=== PATIENT | female | born 2005 | race Hispanic/Latino ===

== ENCOUNTER 2023-12-08 07:21 | Inpatient (IN) | payer BC ==
[2023-12-02 11:51] LABS: APPEARANCE,URINE CLEAR (CLEAR); BILIRUBIN,URINE NEGATIVE (NEGATIVE); COLOR,URINE YELLOW (YELLOW); GLUCOSE, URINE (UA) NEGATIVE (NEGATIVE); KETONES,URINE NEGATIVE (NEGATIVE); LEUKOCYTE ESTERASE ,URINE 75 Leu/uL (NEGATIVE); NITRATE,URINE NEGATIVE (NEGATIVE); OCCULT BLOOD,URINE SMALL (NEGATIVE); PH,URINE 5.5 (5.0-8.0); PROTEIN,URINE NEGATIVE (NEGATIVE); UROBILINOGEN,URINE 0.2 mg/dL (0.2-1.0)
[2023-12-02 11:52] LABS: BASOPHILS # (AUTO) 0.02 K/uL (0.00-0.20); BASOPHILS % (AUTO) 0.3 % (0.0-5.0); EOSINOPHILS # (AUTO) 0.03 K/uL (0.00-0.70); EOSINOPHILS % (AUTO) 0.5 % (0.0-8.0); HEMATOCRIT 42.2 % (36-48); IMMATURE GRANULOCYTE ABSOLUTE 0.02 K/uL (0-1); LYMPHOCYTES # (AUTO) 1.3 K/uL (1.0-4.8); LYMPHOCYTES % (AUTO) 21.7 % (21.0-51.0); MEAN CORPUSCULAR HEMOGLOBIN 29.3 pg (27.0-33.0); MEAN CORPUSCULAR HGB CONC 33.2 g/dL (32.0-36.0); MEAN CORPUSCULAR VOLUME 88.3 fL (80-100); MONOCYTES # (AUTO) 0.3 K/uL (0.1-1.0); MONOCYTES % (AUTO) 5.5 % (3.0-13.0); NEUTROPHILS # (AUTO) 4.4 K/uL (1.8-7.7); NEUTROPHILS % (AUTO) 71.7 % (40.0-77.0); PLATELET COUNT (AUTO) 208 K/uL (130-400); RED BLOOD CELL COUNT(AUTO) 4.78 MIL/uL (4.00-5.50); RED CELL DISTRIBUTION WIDTH 11.9 % (11.0-15.5); WHITE BLOOD COUNT (AUTO) 6.2 K/uL (4.8-10.8)
[2023-12-02 11:53] VITALS: BP 112/63; PULSE 65; RESP 18
[2023-12-02 11:58] LABS: ADD UA MICROSCOPIC YES
[2023-12-02 12:00] LABS: BACTERIA,URINE RARE /HPF (None Seen); MUCUS,URINE FEW LPF (None Seen); SQUAMOUS EPITHELIAL CELL,UR MOD /HPF (0-2)
[2023-12-02 12:08] LABS: ALBUMIN 4.5 g/dL (3.5-5.0); BILIRUBIN,TOTAL 0.5 mg/dL (0.2-1.0); CREATININE 0.6 mg/dL (0.5-1.0); POTASSIUM 4.3 mmol/L (3.5-5.1); TOTAL PROTEIN, SERUM 8.9 g/dL (6.0-8.3)
[~2023-12-08] VITALS: Ht 157.5 cm; Wt 59.1 kg
[2023-12-08] VITALS (34 sets, daily range): BP systolic 82–130; BP diastolic 36–84; PULSE 70–116; RESP 10–23; O2SAT 98–100
[~2023-12-08 07:21] MED LIST: ASCO1TAB43 PO; CALCIUM + VITAMIN D PO; CHOL500050 PO; COLLAGEN PO; DEPO-PROVERA IM; EVENING PRIMROSE OIL PO; MULTIVITAMIN GUMMIES PO; VITAMIN E PO
[2023-12-08] MEDS ORDERED: SUCCINYLCHOLINE CHLORIDE 20 MG/ML 10 ML VIAL ONE (07:57)
[2023-12-08] MEDS ORDERED: LIDOCAINE PF 100MG/5ML (2%) SYRINGE 5ML ONE (07:57)
[2023-12-08] MEDS ORDERED: PROPOFOL 10 MG/ML 20ML VIAL IV ONE (07:58)
[2023-12-08] MEDS ORDERED: MIDAZOLAM HCL 1 MG/ML 2ML VIAL ONE ×2 (07:58→09:58)
[2023-12-08] MEDS ORDERED: GLYCOPYRROLATE 0.2 MG/ML 5 ML VIAL ONE (07:58)
[2023-12-08] MEDS ORDERED: NEOSTIGMINE METHYLSULFATE 1MG/ML IV ONE (07:58)
[2023-12-08] MEDS ORDERED: ONDANSETRON 4MG INJ ONE (07:58)
[2023-12-08] MEDS ORDERED: DEXAMETHASONE SOD PHOSPHATE 10MG/ML 1ML VIAL ONE ×2 (07:58→09:39)
[2023-12-08] MEDS ORDERED: ROCURONIUM BROMIDE 10MG/1ML 5ML VL ONE (07:59)
[2023-12-08] MEDS ORDERED: FENTANYL CITRATE PF 50 MCG/1 ML 2ML VIAL ONE (07:59)
[2023-12-08] MEDS ORDERED: BUPIVACAINE/PF 0.5% 30ML VIAL ONE (08:01)
[2023-12-08] MEDS: CEFAZOLIN SODIUM 2 GM VIAL IVPB ONE (09:35)
[2023-12-08 09:52] LABS: ABG BASE EXCESS -6.8 mmol/L (-2.0-3.0); ABG HCO3 18.8 mmol/L (21.0-28.0); ABG OXYGEN SATURATION 99.6 % (95.0-99.0); ABG PCO2 38 mmHg (32-45); ABG PH 7.312 (7.350-7.450); CARBON MONOXIDE 0.3; DEVICE COMMENT OR 7 RR; HHb 0.4; PO2, ARTERIAL BG > 500.0 mmHg (83.0-108.0); VENT MODE, BG OR VENT (ROOM AIR)
[2023-12-08] MEDS ORDERED: FAMOTIDINE 20MG VIAL IV ONE (10:10)
[2023-12-08] MEDS ORDERED: EPHEDRINE SULFATE 50 MG/ML AMPULE ONE (10:20)
[2023-12-08 10:48] LABS: ABG BASE EXCESS 1.2 mmol/L (-2.0-3.0); ABG HCO3 23.6 mmol/L (21.0-28.0); ABG OXYGEN SATURATION 99.1 % (95.0-99.0); ABG PCO2 31 mmHg (32-45); ABG PH 7.497 (7.350-7.450); CARBON MONOXIDE 0.1; DEVICE COMMENT ALINE; HHb 0.9; PO2, ARTERIAL BG 290.2 mmHg (83.0-108.0); VENT MODE, BG AC (ROOM AIR)
[2023-12-08] MEDS ORDERED: POLYETHYLENE GLYCOL 3350 17 GM POWD.PACK PO PRN (11:00)
[2023-12-08] MEDS ORDERED: ZOLPIDEM TARTRATE 5 MG TAB PO PRN (11:00)
[2023-12-08] MEDS ORDERED: DIPHENHYDRAMINE HCL 25 MG CAPSULE PO PRN (11:00)
[2023-12-08] MEDS ORDERED: ACETAMINOPHEN 325 MG TAB PO PRN ×2 (11:00)
[2023-12-08] MEDS ORDERED: HYDRALAZINE 25MG TABLET PO PRN (11:00)
[2023-12-08] MEDS ORDERED: GUAIFENESIN SUGAR-FREE 100 MG/5 ML UDCUP PO PRN (11:00)
[2023-12-08] MEDS ORDERED: ONDANSETRON 4MG INJ IV PRN (11:00)
[2023-12-08] MEDS ORDERED: POTASSIUM CHLORIDE 10% ELIXIR 20 MEQ/15 ML UDCUP PO PRN (11:30)
[2023-12-08] MEDS ORDERED: POTASSIUM CHLORIDE 20MEQ/100ML 100 ML IV PRN (11:30)
[2023-12-08] MEDS ORDERED: KCL 20 MEQ ERTAB PO PRN (11:30)
[2023-12-08] MEDS: FENTANYL 1000MCG+NS 100ML 100 ML IV SCH (11:39)
[2023-12-08] MEDS: PROPOFOL 1000 MG/100 ML IV PRN (11:40)
[2023-12-08] MEDS: FENTANYL 1000MCG+NS 100ML 100 ML IV ONE (11:40)
[2023-12-08] MEDS: PROPOFOL 1000 MG/100 ML 100 ML IV ONE (11:41)
[2023-12-08] MEDS: LACTATED RINGERS 1000ML 1,000 ML IV SCH (11:42)
[2023-12-08] MEDS: DiphenhydrAMINE HCL 50 MG/ML VIAL IV SCH (11:42)
[2023-12-08 11:49] LABS: BASOPHILS # (AUTO) 0.03 K/uL (0.00-0.20); BASOPHILS % (AUTO) 0.2 % (0.0-5.0); EOSINOPHILS # (AUTO) 0.01 K/uL (0.00-0.70); EOSINOPHILS % (AUTO) 0.1 % (0.0-8.0); HEMATOCRIT 41.8 % (36-48); IMMATURE GRANULOCYTE ABSOLUTE 0.13 K/uL (0-1); LYMPHOCYTES # (AUTO) 1.2 K/uL (1.0-4.8); LYMPHOCYTES % (AUTO) 6.6 % (21.0-51.0); MEAN CORPUSCULAR HEMOGLOBIN 29.3 pg (27.0-33.0); MEAN CORPUSCULAR HGB CONC 33.7 g/dL (32.0-36.0); MEAN CORPUSCULAR VOLUME 86.7 fL (80-100); MONOCYTES # (AUTO) 0.2 K/uL (0.1-1.0); NEUTROPHILS # (AUTO) 16.5 K/uL (1.8-7.7); NEUTROPHILS % (AUTO) 91.4 % (40.0-77.0); PLATELET COUNT (AUTO) 197 K/uL (130-400); RED BLOOD CELL COUNT(AUTO) 4.82 MIL/uL (4.00-5.50)
[2023-12-08] MEDS: CEFAZOLIN SODIUM 2 GM VIAL ONE (11:49)
[2023-12-08] MEDS: INSULIN HUMULIN R 100 UNIT/ML 3ML SQ SCH ×2 (11:49→21:00)
[2023-12-08] MEDS: LACTATED RINGERS 1000ML 1,000 ML IV ONE (11:50)
[2023-12-08 12:01] LABS: ALBUMIN 2.8 g/dL (3.5-5.0); BILIRUBIN,TOTAL 0.7 mg/dL (0.2-1.0); CREATININE 0.6 mg/dL (0.5-1.0); MAGNESIUM 1.4 mg/dL (1.80-2.40); TOTAL PROTEIN, SERUM 5.3 g/dL (6.0-8.3)
[2023-12-08 12:05] LABS: POTASSIUM 2.8 mmol/L (3.5-5.1)
[2023-12-08] MEDS: POTASSIUM CHLORIDE 20MEQ/100ML 100 ML IV PRN (12:06)
[2023-12-08] MEDS: MAGNESIUM 2GM PREMIX 50ML 50 ML IV PRN (12:33)
[2023-12-08 14:38] LABS: ABG BASE EXCESS -1.8 mmol/L (-2.0-3.0); ABG HCO3 21.9 mmol/L (21.0-28.0); ABG OXYGEN SATURATION 99.4 % (95.0-99.0); ABG PCO2 34 mmHg (32-45); ABG PH 7.423 (7.350-7.450); PO2, ARTERIAL BG 201.2 mmHg (83.0-108.0); VENT MODE, BG AC (ROOM AIR)
[2023-12-08] MEDS: ALBUTEROL 0.083% 2.5 MG/3 ML INH IH SCH (14:54)
[2023-12-08] MEDS: IPRATROPIUM 0.5 MG/2.5 ML INH IH SCH (14:55)
[2023-12-08 17:23] LABS: POTASSIUM 3.8 mmol/L (3.5-5.1)
[2023-12-08] MEDS: SOLU-MEDROL 40MG VIAL IVP SCH (21:31)
[2023-12-08] MEDS: FAMOTIDINE 20MG VIAL IV SCH (21:32)
[2023-12-09] VITALS (8 sets, daily range): BP systolic 105–151; BP diastolic 55–78; PULSE 71–101; RESP 16–19; O2SAT 96
[2023-12-09 04:42] LABS: CREATININE 0.4 mg/dL (0.5-1.0); MAGNESIUM 1.2 mg/dL (1.80-2.40); POTASSIUM 3.8 mmol/L (3.5-5.1)
[2023-12-09 04:49] LABS: HEMATOCRIT 26.7 % (36-48); IMMATURE GRANULOCYTE ABSOLUTE 0.03 K/uL (0-1); LYMPHOCYTES # (AUTO) 0.4 K/uL (1.0-4.8); LYMPHOCYTES % (AUTO) 6.6 % (21.0-51.0); MEAN CORPUSCULAR HEMOGLOBIN 29.3 pg (27.0-33.0); MEAN CORPUSCULAR HGB CONC 33.7 g/dL (32.0-36.0); MONOCYTES # (AUTO) 0.1 K/uL (0.1-1.0); MONOCYTES % (AUTO) 1.5 % (3.0-13.0); NEUTROPHILS # (AUTO) 6.1 K/uL (1.8-7.7); NEUTROPHILS % (AUTO) 91.5 % (40.0-77.0); PLATELET COUNT (AUTO) 132 K/uL (130-400); RED BLOOD CELL COUNT(AUTO) 3.07 MIL/uL (4.00-5.50); RED CELL DISTRIBUTION WIDTH 12.3 % (11.0-15.5); WHITE BLOOD COUNT (AUTO) 6.7 K/uL (4.8-10.8)
[2023-12-09] MEDS ORDERED: ALBUTEROL 0.083% 2.5 MG/3 ML INH IH PRN (09:30)
[2023-12-09] MEDS ORDERED: IPRATROPIUM 0.5 MG/2.5 ML INH IH PRN (09:30)
== END 2023-12-09 18:30 | disposition home or self-care (01) | DRG 606 ==
LOC: DAH 07:21 → 2CV 07:22 → DAH 07:22 → 4DH 12-09 00:30
PROVIDERS: ADMIT Student in an Organized Health Care Education/Training Program; ATTEND Student in an Organized Health Care Education/Training Program
PROC: 0BH17EZ Insertion of Endotracheal Airway into Trachea, Via Natural or Artificial Opening (ICD-10-PCS; 2023-12-08)
PROC: 5A1935Z Respiratory Ventilation, Less than 24 Consecutive Hours (ICD-10-PCS; 2023-12-08)
PROC: 0HJT0ZZ Inspection of Right Breast, Open Approach (ICD-10-PCS; principal; 2023-12-08 09:30)
DX: D24.1 Benign neoplasm of right breast (principal); J96.00 Acute respiratory failure, unspecified whether with hypoxia or hypercapnia; T88.6XXA Anaphylactic reaction due to adverse effect of correct drug or medicament properly administered, initial encounter; Y83.8 Other surgical procedures as the cause of abnormal reaction of the patient, or of later complication, without mention of misadventure at the time of the procedure; Z53.9 Procedure and treatment not carried out, unspecified reason; T36.0X5A Adverse effect of penicillins, initial encounter; Y92.89 Other specified places as the place of occurrence of the external cause; Z88.8 Allergy status to other drugs, medicaments and biological substances
CPT/HCPCS: 36415; 36600; 71045; 80048; 80053; 81001; 81025; 82435; 82803; 82947; 82948; 83605; 83735; 84132; 84295; 84443; 84703; 85018; 85025; 87040; 87071; 87088; 87205; 94002; 94640; 94664; G0378; J0330; J1100; J1200; J2001; J2250; J2405; J2704; J2710; J2920; J3010; J3475; J3480; J3490; J7120; A4213; A4215; A4221; A4222; A4223; A4600; A4649; A4663; A4930; G0168; J0665; J0690

== ENCOUNTER 2023-12-31 09:57 | Day surgery (SDC) | payer BC ==
[2023-12-29 11:53] VITALS: BP 97/59; PULSE 78; RESP 18
[2023-12-29 12:01] LABS: BASOPHILS # (AUTO) 0.01 K/uL (0.00-0.20); BASOPHILS % (AUTO) 0.2 % (0.0-5.0); EOSINOPHILS # (AUTO) 0.04 K/uL (0.00-0.70); EOSINOPHILS % (AUTO) 0.9 % (0.0-8.0); HEMATOCRIT 38.3 % (36-48); IMMATURE GRANULOCYTE ABSOLUTE 0.01 K/uL (0-1); LYMPHOCYTES # (AUTO) 1.6 K/uL (1.0-4.8); LYMPHOCYTES % (AUTO) 35.8 % (21.0-51.0); MEAN CORPUSCULAR HEMOGLOBIN 29.3 pg (27.0-33.0); MEAN CORPUSCULAR HGB CONC 32.9 g/dL (32.0-36.0); MEAN CORPUSCULAR VOLUME 89.1 fL (80-100); MONOCYTES # (AUTO) 0.2 K/uL (0.1-1.0); MONOCYTES % (AUTO) 5.3 % (3.0-13.0); NEUTROPHILS # (AUTO) 2.6 K/uL (1.8-7.7); NEUTROPHILS % (AUTO) 57.6 % (40.0-77.0); PLATELET COUNT (AUTO) 181 K/uL (130-400); RED CELL DISTRIBUTION WIDTH 12.3 % (11.0-15.5); WHITE BLOOD COUNT (AUTO) 4.5 K/uL (4.8-10.8)
[2023-12-29 12:09] LABS: ADD UA MICROSCOPIC YES; APPEARANCE,URINE CLEAR (CLEAR); BILIRUBIN,URINE NEGATIVE (NEGATIVE); COLOR,URINE LIGHT-YELLOW (YELLOW); GLUCOSE, URINE (UA) NEGATIVE (NEGATIVE); KETONES,URINE NEGATIVE (NEGATIVE); LEUKOCYTE ESTERASE ,URINE 250 Leu/uL (NEGATIVE); NITRATE,URINE 2+ (NEGATIVE); PROTEIN,URINE NEGATIVE (NEGATIVE); UROBILINOGEN,URINE 0.2 mg/dL (0.2-1.0)
[2023-12-29 12:16] LABS: BACTERIA,URINE FEW /HPF (None Seen); MUCUS,URINE RARE LPF (None Seen); SQUAMOUS EPITHELIAL CELL,UR FEW /HPF (0-2)
[2023-12-29 12:21] LABS: ALBUMIN 4.2 g/dL (3.5-5.0); BILIRUBIN,TOTAL 0.7 mg/dL (0.2-1.0); CREATININE 0.6 mg/dL (0.5-1.0); POTASSIUM 3.6 mmol/L (3.5-5.1); TOTAL PROTEIN, SERUM 8.1 g/dL (6.0-8.3)
[2023-12-31] VITALS (15 sets, daily range): BP systolic 115–140; BP diastolic 64–77; PULSE 64–115; RESP 15–19
[~2023-12-31] VITALS: Ht 160 cm; Wt 58.1 kg
[2023-12-31] MEDS ORDERED: LIDOCAINE 1%-EPI 1:100,000 20 ML VIAL ONE (10:09)
[2023-12-31] MEDS ORDERED: EPINEPHRINE PF 1MG (1:1,000) 1 MG/ML AMP ONE (10:13)
[2023-12-31] MEDS ORDERED: SUCCINYLCHOLINE CHLORIDE 20 MG/ML 10 ML VIAL ONE (10:21)
[2023-12-31] MEDS ORDERED: PROPOFOL 10 MG/ML 20ML VIAL IV ONE (10:21)
[2023-12-31] MEDS ORDERED: LIDOCAINE PF 100MG/5ML (2%) SYRINGE 5ML ONE (10:21)
[2023-12-31] MEDS ORDERED: FENTANYL CITRATE PF 50 MCG/1 ML 2ML VIAL ONE (10:22)
[2023-12-31] MEDS: DiphenhydrAMINE HCL 50 MG/ML VIAL IV ONE (10:25)
[2023-12-31] MEDS: FAMOTIDINE 20MG VIAL IV ONE ×2 (10:26→10:45)
[2023-12-31] MEDS ORDERED: ACETAMINOPHEN 1,000 MG/100 ML VIAL IV SCH (10:30)
[2023-12-31] MEDS: ACETAMINOPHEN 1,000 MG/100 ML VIAL IV ONE ×2 (10:42→10:45)
[2023-12-31] MEDS ORDERED: CLINDAMYCIN IVPB 600MG/50ML 50 ML IV ONE (10:43)
[2023-12-31] MEDS: DEXAMETHASONE SOD PHOSPHATE 4 MG/ML 1ML VIAL IV ONE (10:43)
[2023-12-31] MEDS: DiphenhydrAMINE HCL 50 MG/ML VIAL ONE (10:45)
[2023-12-31] MEDS: DEXAMETHASONE SOD PHOSPHATE 4 MG/ML 1ML VIAL ONE (10:45)
[2023-12-31] MEDS ORDERED: ROCURONIUM BROMIDE 10MG/1ML 5ML VL ONE (11:14)
[2023-12-31] MEDS ORDERED: ONDANSETRON 4MG INJ ONE (11:17)
[2023-12-31] MEDS ORDERED: GLYCOPYRROLATE 0.2 MG/ML 5 ML VIAL ONE (12:09)
[2023-12-31] MEDS ORDERED: NEOSTIGMINE METHYLSULFATE 1MG/ML IV ONE (12:09)
[2023-12-31] MEDS: BUPIVACAINE/PF 0.25% 30ML VIAL IJ ONE (12:10)
[2023-12-31] MEDS: FENTANYL CITRATE PF 50 MCG/1 ML 2ML VIAL ONE (12:25)
== END 2023-12-31 13:50 | disposition home or self-care (01) ==
LOC: DAH 09:57
PROVIDERS: ATTEND Student in an Organized Health Care Education/Training Program
DX: D24.1 Benign neoplasm of right breast (principal); J45.909 Unspecified asthma, uncomplicated; D24.2 Benign neoplasm of left breast; Z79.01 Long term (current) use of anticoagulants; Z79.899 Other long term (current) drug therapy
CPT/HCPCS: 80053; 84703; 85025; 87086 ×2; 81001; 36415; 19301; 87186; 88307; A6260; J1100; A4223 ×3; A4221; A4600; A4663 ×2; A4452; J1200; J3490 ×4; J3010 ×2; J0330; J0665; J2001; J0171; J2704; J2405; J2710; G0168; A4215 ×2; A4222; A4216